=== PATIENT | female | born 1970 | race Two or more races ===

== ENCOUNTER → 2021-02-23 | Emergency (ER) | payer OTHER ==
[~2021-02-23] VITALS: Ht 170.2 cm; Wt 71.2 kg
[~2021-02-23] MED LIST: ATARAX25 MG PO; MEDROLPACK PO; ZYRTEC10 M3 PO
== END | disposition home or self-care (01) ==
LOC: ER 10:49
DX: R21 Rash and other nonspecific skin eruption (principal)